=== PATIENT | male | born 1965 | race Caucasian/White ===

== ENCOUNTER 2018-10-16 11:06 | Emergency (ER) | payer MEDICAID, MEDICARE ==
[~2018-10-16] VITALS: Ht 175.3 cm; Wt 80.0 kg
[~2018-10-16 11:06] MED LIST: LISI-186
[2018-10-16] MEDS ORDERED: METF-414 PO (11:11)
[2018-10-16] MEDS ORDERED: IBUPROFEN 600MG TABLET PO ONE (11:45)
[2018-10-16] MEDS ORDERED: BACITRACIN ZINC OINT UDPKT TOP ONE (11:45)
[2018-10-16] MEDS ORDERED: TETANUS, DIPHTHERIA, PERTUSSIS VAC/PF 0.5ML (>7YR OLD) IM ONE (11:45)
[2018-10-16 11:55] VITALS: BP 167/103
== END 2018-10-16 13:11 | disposition home or self-care (01) ==
LOC: ER 11:06
DX: S13.4XXA Sprain of ligaments of cervical spine, initial encounter (principal); S90.511A Abrasion, right ankle, initial encounter; S30.811A Abrasion of abdominal wall, initial encounter; F41.9 Anxiety disorder, unspecified; E11.9 Type 2 diabetes mellitus without complications; I10 Essential (primary) hypertension; Z79.899 Other long term (current) drug therapy; Z88.6 Allergy status to analgesic agent; V19.9XXA Pedal cyclist (driver) (passenger) injured in unspecified traffic accident, initial encounter; Y93.89 Activity, other specified; Y92.89 Other specified places as the place of occurrence of the external cause; Y99.8 Other external cause status
CPT/HCPCS: 90471; 90715; 99284

== ENCOUNTER 2018-12-09 23:42 | Emergency (ER) | payer MEDICARE ==
[~2018-12-09] VITALS: Ht 177.8 cm; Wt 96.0 kg
[~2018-12-09 23:42] MED LIST changes: +METF-414 PO
[2018-12-10 00:18] VITALS: BP 187/118
== END 2018-12-10 02:00 | disposition left against medical advice (07) ==
LOC: ER 23:42
DX: Z04.1 Encounter for examination and observation following transport accident (principal); Z53.21 Procedure and treatment not carried out due to patient leaving prior to being seen by health care provider